=== PATIENT | male | born 1955 | race Caucasian/White ===

== ENCOUNTER 2019-08-07 11:05 | Emergency (ER) | payer BC ==
[2019-08-07] MEDS ORDERED: HYDROmorphone 1 MG/ML Syringe ONE (11:17)
[2019-08-07] MEDS ORDERED: HYDROmorphone 1 MG/ML Syringe IVPUSH ONE ×2 (11:20→14:36)
[2019-08-07] MEDS ORDERED: Sodium Chloride 0.9% 10 ML Syringe FLUSH PRN (11:22)
[2019-08-07] MEDS ORDERED: Lidocaine 1% 20 ML MDV ONE (11:36)
--- NOTE | 2019-08-07 11:37 | EDM.PDOC ---
ED HPI GENERAL MEDICAL PROBLEM - General Chief Complaint: Upper Extremity Injury/Pain Time Seen by Provider: 08/07/19 11:24 Source of Information: Reports: Patient History Limitations: Reports: No Limitations - History of Present Illness INITIAL COMMENTS - FREE TEXT/NARRATIVE: Patient presents with injury to left index, long, ring finger tips from incident with a circular power saw today. He says he is 2 years since last tetanus update. No other injuries. Treatments STUNT PERSON: Reports: Dressing(s) Left Finger-Middle Pain Score (Numeric/FACES): 9 - Related Data Allergies Allergy/AdvReac Type Severity Reaction Status Date / Time No Known Drug Allergies Allergy Cannot Verified 08/07/19 11:32 Remember Home Meds: Home Meds ALPRAZolam [Xanax] 0.25 mg PO BID PRN 08/07/19 [History] Flecainide [Tambocor] 1 tab PO DAILY 08/07/19 [History] Lisinopril [Zestril] 2.5 mg PO DAILY 08/07/19 [History] Simvastatin 1 tab PO DAILY 08/07/19 [History] traZODone HCl [Trazodone HCl] 50 mg PO BEDTIME 08/07/19 [History] Review of Systems - Review of Systems Review Of Systems: See Below Constitutional: Denies: Chills, Diaphoresis, Fever, Weakness Eyes: Reports: No Symptoms. Denies: Vision Change Ears: Reports: No Symptoms Nose: Reports: No Symptoms Mouth/Throat: Reports: No Symptoms Respiratory: Reports: No Symptoms. Denies: Shortness of Breath Cardiovascular: Reports: No Symptoms. Denies: Syncope GI/Abdominal: Reports: No Symptoms Musculoskeletal: Reports: Hand Pain. Denies: Neck Pain, Shoulder Pain, Arm Pain , Back Pain, Leg Pain, Foot Pain Skin: Denies: Cyanosis, Jaundice, Mottled, Pallor, Diaphoresis Neurological: Denies: Confusion, Dizziness, Headache, Numbness, Seizure, Syncope , Tingling, Trouble Speaking, Difficulty Walking Psychiatric: Denies: Confusion, Anxiety, Agitation ED EXAM, GENERAL - Physical Exam Exam: See Below Exam Limited By: No Limitations General Appearance: Alert, WD/WN, No Apparent Distress Eye Exam: Bilateral Eye: EOMI, Normal Inspection, PERRL Ears: Normal External Exam, Hearing Grossly Normal Nose: Normal Inspection, No Blood Throat/Mouth: Normal Inspection, Normal Lips, Normal Voice, No Airway Compromise Head: Atraumatic, Normocephalic Neck: Normal Inspection, Full Range of Motion Respiratory/Chest: No Respiratory Distress, Lungs Clear, Normal Breath Sounds Cardiovascular: Normal Peripheral Pulses, Regular Rate, Rhythm (he says he has intermittent A Fib and takes Flecanide when it starts), No Murmur Back Exam: Normal Inspection, Full Range of Motion Extremities: Normal Range of Motion (full AROM of fingers and against resistance ; no evidence of tendon involvement.), Normal Capillary Refill, Other (Partial avulsion lacerations of distal left index, ring finger tips; volar laceration of long finger slightly distal to DIP crease. CMS intact.) Neurological: Alert, Oriented, Normal Cognition, No Motor/Sensory Deficits Psychiatric: Normal Affect, Normal Mood Skin Exam: Warm, Dry, Intact (except CC), Normal Color, No Rash ED TRAUMA EXTREMITY PROCEDURES - Laceration/Wound Repair Left Digit - 4th (Ring) Lac/Wound Length In cm: 3 Appearance: Subcutaneous, Stellate, Irregular Distal NVT: Neuro & Vascular Intact, No Tendon Injury Anesthetic Type: Local Local Anesthesia - Lidocaine (Xylocaine): 1% Plain Local Anesthetic Volume: 4cc Skin Prep: Chlorhexidine (Hibiciens) Exploration/Debridement/Repair: Wound Explored, Moderate Debridement Suture Size: 5-0 # of Sutures: 11 Suture Type: Nylon, Interrupted, Simple Sterile Dressing Applied: Nurse Tetanus Status Addressed: Yes Complications: No Left Digit - 3rd (Middle) Lac/Wound Length In cm: 2.5 Appearance: Subcutaneous, Stellate, Irregular Distal NVT: Neuro & Vascular Intact, No Tendon Injury Local Anesthesia - Lidocaine (Xylocaine): 1% Plain Local Anesthetic Volume: 4cc Skin Prep: Chlorhexidine (Hibiciens) Exploration/Debridement/Repair: Wound Explored, Minimal Debridement Closed With: Sutures Suture Size: 5-0 # of Sutures: 8 Suture Type: Nylon, Interrupted, Simple Sterile Dressing Applied: Nurse Tetanus Status Addressed: Yes Complications: No Left Digit - 2nd (Index) Lac/Wound Length In cm: 3 Appearance: Subcutaneous, Stellate, Irregular Distal NVT: Neuro & Vascular Intact, No Tendon Injury Anesthetic Type: Local Local Anesthesia - Lidocaine (Xylocaine): 1% Plain Local Anesthetic Volume: 5cc Skin Prep: Chlorhexidine (Hibiciens) Exploration/Debridement/Repair: Minimal Debridement Suture Size: 5-0 # of Sutures: 8 Suture Type: Nylon, Interrupted, Simple Sterile Dressing Applied: Nurse Tetanus Status Addressed: Yes Complications: No Course - Vital Signs Last Recorded V/S: Last Vital Signs Temp 98.7 F 08/07/19 11:22 Pulse 88 08/07/19 12:30 Resp 16 08/07/19 11:22 BP 132/89 08/07/19 12:30 Pulse Ox 92 L 08/07/19 11:22 - Orders/Labs/Meds Orders: Active Orders 24 hr Category Date Time Status Peripheral IV Care [RC] . DIRECTED Care 08/07/19 11:22 Active Sodium Chloride 0.9% [Saline Flush] Med 08/07/19 11:22 Active 10 ml FLUSH Q8HR PRN Peripheral IV Insertion Adult [OM.PC] Routine Oth 08/07/19 11:22 Ordered Medication Orders Sodium Chloride (Saline Flush) 10 ml FLUSH Q8HR PRN PRN Reason: keep vein open Last Admin: 08/07/19 11:41 Dose: 10 ml Meds: Medications Generic Name Dose Route Start Last Admin Trade Name Freq PRN Reason Stop Dose Admin Sodium Chloride 10 ml 08/07/19 11:22 08/07/19 11:41 Saline Flush FLUSH 10 ml Q8HR PRN Administration keep vein open Discontinued Medications Generic Name Dose Route Start Last Admin Trade Name Freq PRN Reason Stop Dose Admin Hydromorphone HCl Confirm 08/07/19 11:17 08/07/19 11:41 Dilaudid Administered 08/07/19 11:18 Not Given Dose 1 mg .ROUTE .STK-MED ONE Hydromorphone HCl 1 mg 08/07/19 11:20 08/07/19 11:20 Dilaudid IVPUSH 08/07/19 11:21 1 mg ONETIME ONE Administration Hydromorphone HCl 1 mg 08/07/19 14:36 Dilaudid IVPUSH 08/07/19 14:37 ONETIME ONE Lidocaine HCl Confirm 08/07/19 11:36 08/07/19 13:02 Xylocaine 1% Administered 08/07/19 11:37 Not Given Dose 20 ml .ROUTE .STK-MED ONE Lidocaine HCl 20 ml 08/07/19 13:37 08/07/19 13:38 Xylocaine 1% INJECT 08/07/19 13:38 14 ml ONETIME ONE Administration - Re-Assessments/Exams Free Text/Narrative Re-Assessment/Exam: 08/07/19 12:12 Xrays show displaced fracture and loose fragment of left ring finger distal phalanx and tuft. No evidence of bony pathology of long or index fingers. Patient does all his care at [facility] so I called there to see if their orthopedist would want to see this patient. I spoke with Dr. Welch who is calling me back shortly. 08/07/19 16:08 Dr. Welch wants me to repair lacerations and apply splint then patient will follow up with them at [place]. I discussed findings and treatment plan with patient who agrees. Sterile technique was used to place 8 sutures in left index , 8 in long and 11 in ring fingers. Tube gauze was placed on each finger and a volar splint was applied that can be removed as needed for showering and ROM. Patient tolerated the procedure well. Departure - Departure Time of Disposition: 14:46 Disposition: Home, Self-Care 01 Condition: Good Clinical Impression: Laceration of finger nail bed Qualifiers: Encounter type: initial encounter Qualified Code(s): S61.319A - Laceration without foreign body of unspecified finger with damage to nail, initial encounter Laceration of finger of left hand with damage to nail Qualifiers: Encounter type: initial encounter Finger: index finger Foreign body presence: without foreign body Qualified Code(s): S61.311A - Laceration without foreign body of left index finger with damage to nail, initial encounter Laceration of finger of left hand without damage to nail Qualifiers: Encounter type: initial encounter Finger: middle finger Foreign body presence: without foreign body Qualified Code(s): S61.213A - Laceration without foreign body of left middle finger without damage to nail, initial encounter Fracture of finger, distal phalanx, left, open Qualifiers: Encounter type: initial encounter Finger: ring finger Fracture alignment: displaced Qualified Code(s): S62.635B - Displaced fracture of distal phalanx of left ring finger, initial encounter for open fracture - Discharge Information Instructions: Laceration Care, Adult, Cast or Splint Care, Adult, [id number] Referrals: PCP,Not In Area [Ordering Only Provider] - Forms: ED Department Discharge Additional Instructions: 1. Keep wounds clean and dry except for showering. 2. You can remove the tube gauze bandages in 48 hours. 3. Wear the splint except for cleaning and ROM (range of motion) of wrist and fingers. [facility]. [facility] for follow up and suture removal. You can see a local provider also if desired. 5. Recheck MICKY if any sign of infection. 6. Sutures should be removed at a follow up appointment in 10-14 days. Sepsis Event Note - Evaluation Sepsis Screening Result: No Definite Risk - Focused Exam Vital Signs: Vital Signs Temp Pulse Resp BP Pulse Ox 08/07/19 12:30 88 132/89 08/07/19 11:22 98.7 F 118 H 16 181/90 H 92 L Date Exam was Performed: 08/07/19 Time Exam was Performed: 14:46 - My Orders Last 24 Hours: My Active Orders 08/07/19 11:22 Peripheral IV Care [RC] . DIRECTED Sodium Chloride 0.9% [Saline Flush] 10 ml FLUSH Q8HR PRN Peripheral IV Insertion Adult [OM.PC] Routine - Assessment/Plan Last 24 Hours: My Active Orders 08/07/19 11:22 Peripheral IV Care [RC] . DIRECTED Sodium Chloride 0.9% [Saline Flush] 10 ml FLUSH Q8HR PRN Peripheral IV Insertion Adult [OM.PC] Routine
[2019-08-07] MEDS ORDERED: Lidocaine 1% 50 ML MDV INJECT ONE (12:00)
--- NOTE | 2019-08-07 12:17 | CR ---
[id number] RAD/RAD Fingers Left EXAM: RAD Fingers Left INDICATION: CUT FINGERS WITH CIRCULAR SAW. COMPARISON: None. DISCUSSION: Soft tissue injury involving the tips of the second, third and fourth digits. There is a comminuted fractures involving the distal 50% of the fourth distal phalanx which appears incompletely amputated. Small fracture fragments are displaced up to 6 mm. No dislocation or other osseous abnormality is identified. IMPRESSION: 1. Soft tissue injury involving the tips of the second through fourth digits. There is an associated comminuted fracture with partial amputation of the tip of the fourth distal phalanx. Herminio Rico MD 08/07/19 [id number] Thank you for allowing us to participate in the care of your patient.
[2019-08-07] MEDS ORDERED: Lidocaine 1% 20 ML MDV INJECT ONE (13:37)
== END 2019-08-07 15:15 | disposition home or self-care (01) ==
LOC: KA.ED 11:05
DX: S62.635B Displaced fracture of distal phalanx of left ring finger, initial encounter for open fracture (principal); S61.311A Laceration without foreign body of left index finger with damage to nail, initial encounter; S61.213A Laceration without foreign body of left middle finger without damage to nail, initial encounter; W29.8XXA Contact with other powered hand tools and household machinery, initial encounter
CPT/HCPCS: 12004; 73140-LT; 96374; 96376; 99283-25; J1170; J2001